=== PATIENT | female | born 1945 | race Caucasian/White ===

== ENCOUNTER 2017-09-11 04:34 | Inpatient (IN) | payer OTHER, MEDICARE ==
[2017-09-11] VITALS (7 sets, daily range): BP systolic 97–170; BP diastolic 50–68; PULSE 61–101; RESP 16–18; TEMP 95.6–103.1; O2SAT 92–96
[~2017-09-11] VITALS: Ht 160 cm; Wt 82.2 kg
[2017-09-11] MEDS ORDERED: LISI2.5T3 PO (04:42)
[2017-09-11] MEDS ORDERED: PIPERACIL-TAZO 4.5 GM PREMIX 100 ML IV ONE (04:45)
[2017-09-11] MEDS ORDERED: SODIUM CHLOR 0.9% 1000 ML INJ 1,000 ML IV ONE (04:45)
[2017-09-11] MEDS ORDERED: ACETAMINOPHEN 325 MG TAB PO ONE (04:45)
[2017-09-11] MEDS ORDERED: ONDANSETRON HCL 4 MG/2 ML VIAL IV PUSH ONE (04:45)
--- NOTE | 2017-09-11 04:50 | PD ---
HPI Chief Complaint: Cold / Flu Symptoms Time Seen by Provider: 04:40 Travel History International Travel<30 days: No Contact w/Intl Traveler<30days: No Traveled to known affect area: No History of Present Illness HPI 72-year-old female presents to the emergency room from home by EMS transport for evaluation of generalized weakness and chills. Patient had subjective fever. Patient has not felt well for the past few days but specifically since 11 PM has had acute worsening of her illness. Patient's had phlegm production of white sputum times one episode of coughing does not report any sinus pressure drainage sore throat earache neck pain chest pain or worsening shortness of breath or wheezing. Patient has had nausea without vomiting. No report of abdominal pain or flank pain. Patient is noted decreased urine output and urinary urgency. Patient denies diarrhea or change in bowel habits. Patient states has been has not felt well as well. Patient is visiting from [place] for the past month through November. Patient has history of hypertension borderline diabetes and prior myocardial infarction. Patient states she takes no blood thinning agents. Patient also reports she did not have the flu vaccine for this season. Per EMS temperature was elevated at 100.2. Vital signs were otherwise reportedly found in normal range with a normal range glucose. Patient was able to ambulate to the EMS stretcher from her local resident. [facility] Past Medical History Narrative Medical CAD borderline diabetes hypertension IN no tobacco use nursing notes reviewed Hypertension: Yes Tubal Ligation: Yes Past Surgical History Abdominal Surgery: Yes Appendectomy: Yes Social History Alcohol Use: Yes Tobacco Use: No Substance Use: No Allergies-Medications (Allergen,Severity, Reaction): Coded Allergies: No Known Allergies (Unverified , 09/11/17) Reported Meds & Prescriptions Reported Meds & Active Scripts Active Reported Lisinopril Unknown Strength Tab Unknown Dose PO BID Review of Systems Except as stated in HPI: all other systems reviewed are Neg General / Constitutional: Positive: Fever (subjective), Chills HENT: Positive: Congestion, No: Sore Throat Cardiovascular: No: Chest Pain or Discomfort Respiratory: Positive: Cough, No: Wheezing Gastrointestinal: Positive: Nausea, No: Vomiting, Diarrhea, Abdominal Pain Genitourinary: Positive: Frequency, Decreased Urinary Output, No: Dysuria Musculoskeletal: Positive: Myalgias, Arthralgias Skin: No Rash Neurologic: Positive: Weakness Psychiatric: No: Anxiety Hematologic/Lymphatic: No: Easy Bruising Physical Exam Narrative GENERAL: Well-developed well-nourished obese elderly female in no acute distress no respiratory distress SKIN: Warm and dry. HEAD: Normocephalic. EYES: No scleral icterus. No injection or drainage. NECK: Supple, trachea midline. No JVD or lymphadenopathy. CARDIOVASCULAR: Regular rate and rhythm without murmurs, gallops, or rubs. RESPIRATORY: Breath sounds equal bilaterally. No accessory muscle use. GASTROINTESTINAL: Abdomen soft, non-tender, nondistended. MUSCULOSKELETAL: No cyanosis, or edema. BACK: Nontender without obvious deformity. No CVA tenderness. Data Data Last Documented VS Vital Signs Date Time Temp Pulse Resp B/P (MAP) Pulse Ox O2 Delivery O2 Flow Rate FiO2 09/11/17 05:21 99.5 86 18 149/67 (94) 96 Nasal Cannula 2.00 Orders Orders Sepsis Workup Initiated (09/11/17 ) Electrocardiogram (09/11/17 04:40) Complete Blood Count With Diff (09/11/17 04:40) Comprehensive Metabolic Panel (09/11/17 04:40) Prothrombin Time / Inr (Pt) (09/11/17 04:40) Act Partial Throm Time (Ptt) (09/11/17 04:40) Lactic Acid Sepsis Protocol (09/11/17 04:40) Magnesium (Mg) (09/11/17 04:40) Lipase (09/11/17 04:40) Troponin I (09/11/17 04:40) Urinalysis - C+S If Indicated (09/11/17 04:40) Influenzae A/B Antigen (09/11/17 04:40) Blood Culture (09/11/17 04:40) Chest, Single Ap (09/11/17 04:40) Blood Glucose (09/11/17 04:40) Ecg Monitoring (09/11/17 04:40) Iv Access Insert/Monitor (09/11/17 04:40) Oximetry (09/11/17 04:40) Oxygen Administration (09/11/17 04:40) Sodium Chlor 0.9% 1000 Ml Inj (Ns 1000 M (09/11/17 04:45) Ondansetron Inj (Zofran Inj) (09/11/17 04:45) Acetaminophen (Tylenol) (09/11/17 04:45) Piperacil-Tazo 4.5 Gm Premix (Zosyn 4.5 (09/11/17 04:45) Vancomycin Inj (Vancomycin Inj) (09/11/17 05:30) Urine Culture (09/11/17 05:40) Labs Laboratory Tests Test 09/11/17 04:50 09/11/17 05:40 White Blood Count 18.7 TH/MM3 Red Blood Count 5.10 MIL/MM3 Hemoglobin 14.3 GM/DL Hematocrit 41.9 % Mean Corpuscular Volume 82.2 FL Mean Corpuscular Hemoglobin 28.0 PG Mean Corpuscular Hemoglobin Concent 34.1 % Red Cell Distribution Width 12.7 % Platelet Count 273 TH/MM3 Mean Platelet Volume 7.8 FL Neutrophils (%) (Auto) 90.4 % Lymphocytes (%) (Auto) 5.8 % Monocytes (%) (Auto) 3.4 % Eosinophils (%) (Auto) 0.2 % Basophils (%) (Auto) 0.2 % Neutrophils # (Auto) 16.9 TH/MM3 Lymphocytes # (Auto) 1.1 TH/MM3 Monocytes # (Auto) 0.6 TH/MM3 Eosinophils # (Auto) 0.0 TH/MM3 Basophils # (Auto) 0.0 TH/MM3 CBC Comment DIFF FINAL Differential Comment Prothrombin Time 10.7 SEC Prothromb Time International Ratio 1.1 RATIO Activated Partial Thromboplast Time 25.4 SEC Blood Urea Nitrogen 15 MG/DL Creatinine 0.92 MG/DL Random Glucose 177 MG/DL Total Protein 7.1 GM/DL Albumin 3.7 GM/DL Calcium Level 9.3 MG/DL Magnesium Level 1.4 MG/DL Alkaline Phosphatase 91 U/L Aspartate Amino Transf (AST/SGOT) 18 U/L Alanine Aminotransferase (ALT/SGPT) 29 U/L Total Bilirubin 0.9 MG/DL Sodium Level 136 MEQ/L Potassium Level 4.0 MEQ/L Chloride Level 100 MEQ/L Carbon Dioxide Level 24.9 MEQ/L Anion Gap 11 MEQ/L Estimat Glomerular Filtration Rate 60 ML/MIN Lactic Acid Level 2.5 mmol/L Troponin I LESS THAN 0.02 NG/ML Lipase 85 U/L Urine Color YELLOW Urine Turbidity HAZY Urine pH 6.5 Urine Specific [place] 1.025 Urine Protein 30 mg/dL Urine Glucose (UA) NEG mg/dL Urine Ketones NEG mg/dL Urine Occult Blood SMALL Urine Nitrite NEG Urine Bilirubin NEG Urine Urobilinogen LESS THAN 2.0 MG/DL Urine Leukocyte Esterase LARGE Urine RBC 7 /hpf Urine WBC /hpf Urine Squamous Epithelial Cells 11 /hpf Urine Transitional Epithelial Cells 1 /hpf Urine Bacteria OCC /hpf Urine Mucus FEW /lpf Microscopic Urinalysis Comment CULTURE INDICATED MDM Medical Decision Making Medical Screen Exam Complete: Yes Emergency Medical Condition: Yes Medical Record Reviewed: Yes Interpretation(s) EKG normal sinus rhythm rate 61 left bundle branch block no acute ST elevation injury pattern noted QS septally age-indeterminate CXR: FINDINGS: A single view of the chest demonstrates the lungs to be symmetrically aerated without evidence of mass, infiltrate or effusion. The cardiomediastinal contours are unremarkable. Osseous structures are intact. CONCLUSION: 1. No acute cardiopulmonary disease. oJhnnie Brizuela MD on September 11, 2017 at 5:08 Board Certified Radiologist. This report was verified electronically. Last Impressions Chest X-Ray 09/11/17 0440 Signed Impressions: Service Date/Time: September 04:55 - CONCLUSION: 1. No acute cardiopulmonary disease. Johnnie Brizuela MD CBC & BMP Diagram 09/11/17 04:50 Total Protein 7.1, Albumin 3.7, Calcium Level 9.3, Magnesium Level 1.4 L, Alkaline Phosphatase 91, Aspartate Amino Transf (AST/SGOT) 18, Alanine Aminotransferase (ALT/SGPT) 29, Total Bilirubin 0.9 Vital Signs Date Time Temp Pulse Resp B/P (MAP) Pulse Ox O2 Delivery O2 Flow Rate FiO2 09/11/17 05:21 99.5 86 18 149/67 (94) 96 Nasal Cannula 2.00 09/11/17 04:44 93 Room Air 09/11/17 04:44 93 Room Air 09/11/17 04:37 103.1 61 18 170/68 (102) 92 UA: innumerable wbc's cx indicated lactic acid: 2.5 influenza: negative Differential Diagnosis Generalized weakness, influenza, sepsis, pneumonia, UTI, viral syndrome, ACS Narrative Course Patient was placed on cardiac rn IV access obtained continuous pulse oximetry vital signs performed and patient found to be febrile administered acetaminophen IV fluids presumptive IV antibiotic coverage and specimens collected for influenza as well as urinalysis EKG ordered in view of history of hypertension diabetes and previous IN with complaint of nausea; patient administered acetaminophen for fever Sepsis Criteria SIRS Criteria (2 or more): Temp > 100.9 or < 96.8, WBC > 57647, < 4000 or > 10 % bands Sepsis Criteria (SIRS+source): Infect source susp/known (urine/pyuria) Severe Sepsis (+one): Lactate >2 Physician Communication Physician Communication discussed with Dr Bryant Diagnosis Primary Impression: Sepsis Qualified Codes: A41.9 - Sepsis, unspecified organism Additional Impression: UTI (urinary tract infection) Qualified Codes: N39.0 - Urinary tract infection, site not specified Admitting Information Admitting Physician Requests: Roma Butler MD Sep 11, 2017 04:50
[2017-09-11 05:01] LABS: AUTOMATED NEUTROPHIL # 16.9 TH/MM3 (1.8-7.7); BASOPHIL % 0.2 % (0.0-2.0); EOSINOPHIL % 0.2 % (0.0-4.0); HEMATOCRIT 41.9 % (35.0-46.0); HEMOGLOBIN 14.3 GM/DL (11.6-15.3); LYMPH % 5.8 % (9.0-44.0); LYMPHOCYTE # 1.1 TH/MM3 (1.0-4.8); MEAN CELL VOLUME 82.2 FL (80.0-100.0); MEAN CORPUSCULAR HGB CONC 34.1 % (32.0-36.0); MEAN PLATELET VOLUME 7.8 FL (7.0-11.0); MONO % 3.4 % (0.0-8.0); MONOCYTE # 0.6 TH/MM3 (0-0.9); NEUT % 90.4 % (16.0-70.0); PLATELET COUNT 273 TH/MM3 (150-450); RED CELL DISTRIBUTION WIDTH 12.7 % (11.6-17.2); WHITE BLOOD COUNT 18.7 TH/MM3 (4.0-11.0)
--- NOTE | 2017-09-11 05:09 | RADRPT ---
EXAM DATE/TIME: 09/11/2017 04:55 [facility] COMPARISON: No previous studies available for comparison. INDICATIONS : Short of breath and fever. MEDICAL HISTORY : None. SURGICAL HISTORY : None. ENCOUNTER: Initial ACUITY: 1 day PAIN SCORE: 0/10 LOCATION: Bilateral chest FINDINGS: A single view of the chest demonstrates the lungs to be symmetrically aerated without evidence of mas s, infiltrate or effusion. The cardiomediastinal contours are unremarkable. Osseous structures are intact. CONCLUSION: 1. No acute cardiopulmonary disease. Johnnie Brizuela MD on September 11, 2017 at 5:08 Board Certified Radiologist. This report was verified electronically.
[2017-09-11 05:17] LABS: INTERNATIONAL NORMALIZED RATIO 1.1 RATIO; PROTHROMBIN TIME - PATIENT 10.7 SEC (9.8-11.6)
[2017-09-11 05:20] LABS: LACTIC ACID SEPSIS PROTOCOL 2.5 mmol/L (0.4-2.0)
[2017-09-11 05:28] LABS: ALT (GPT) 29 U/L (10-53)
[2017-09-11 05:30] LABS: ALBUMIN 3.7 GM/DL (3.4-5.0); AST (GOT) 18 U/L (15-37); BICARBONATE 24.9 MEQ/L (21.0-32.0); BLOOD UREA NITROGEN 15 MG/DL (7-18); CALCIUM 9.3 MG/DL (8.5-10.1); CHLORIDE 100 MEQ/L (98-107); CREATININE 0.92 MG/DL (0.50-1.00); GLOMERULAR FILTRATION RATE 60 ML/MIN (>89); GLUCOSE,RANDOM 177 MG/DL (74-106); MAGNESIUM 1.4 MG/DL (1.5-2.5); SODIUM (NA) 136 MEQ/L (136-145)
[2017-09-11] MEDS ORDERED: VANCOMYCIN INJ 1,000 MG in SODIUM CHLOR 0.9% 250 ML INJ 250 ML IV ONE (05:30)
[2017-09-11 05:33] LABS: ALKALINE PHOSPHATASE 91 U/L (45-117); TOTAL BILIRUBIN ADULT 0.9 MG/DL (0.2-1.0); TOTAL PROTEIN 7.1 GM/DL (6.4-8.2); TROPONIN I LESS THAN 0.02 NG/ML (0.02-0.05)
[2017-09-11 06:01] LABS: BACTERIA, URINE OCC /hpf; BILIRUBIN, URINE NEG (NEG); BLOOD, URINE SMALL (NEG); GLUCOSE,URINE NEG (NEG); KETONE, URINE NEG (NEG); MUCUS URINE FEW /lpf (OCC); NITRITE,URINE NEG (NEG); PH, URINE 6.5 (5.0-8.5); SQUAMOUS EPITHELIAL CELL URINE 11 /hpf (0-5); TRANSITIONAL EPI CELLS, URINE 1 /hpf; URINE COLOR YELLOW (YELLW/STRAW); URINE LEUKOCYTE ESTERASE LARGE (NEG)
[2017-09-11] MEDS ORDERED: SODIUM CHLOR 0.45% 1000 ML INJ 1,000 ML IV SCH (06:41)
[2017-09-11] MEDS ORDERED: BISACODYL 10 MG SUPP RECTAL PRN (06:45)
[2017-09-11] MEDS ORDERED: NALOXONE HCL 0.4 MG/ML AMP IV PUSH PRN (06:45)
[2017-09-11] MEDS ORDERED: LACTULOSE SYRUP 20 GM/30 ML CUP PO PRN (06:45)
[2017-09-11] MEDS ORDERED: ONDANSETRON HCL 4 MG/2 ML VIAL IVP PRN (06:45)
[2017-09-11] MEDS ORDERED: MAGNESIUM HYDROXIDE SUSP 30 ML CUP PO PRN (06:45)
[2017-09-11] MEDS ORDERED: SENNOSIDES 8.6 MG TAB PO PRN (06:45)
[2017-09-11] MEDS ORDERED: SODIUM CHLORIDE 0.9% FLUSH 10 ML FLUSH IV FLUSH PRN (06:45)
[2017-09-11] MEDS ORDERED: TEMAZEPAM 15 MG CAP PO PRN (06:45)
--- NOTE | 2017-09-11 06:57 | HHI.HP ---
[facility] Primary Care Physician Unknown Admission Diagnosis sepsis; uti/pyuria Diagnoses: Chief Complaint: Fever and chills, not feeling well Travel History International Travel<30 Days: No Contact w/Intl Traveler <30 Da: No Traveled to Known Affected Are: No Sepsis Criteria SIRS Criteria (2 or more): Temp > 100.9 or < 96.8, WBC > 54232, < 4000 or > 10 % bands Sepsis Criteria (SIRS+source): Infect source susp/known Severe Sepsis (+one): Lactate >2 History of Present Illness 72-year-old female with a medical history significant for hypertension, borderline diabetes brought from home by EMS for evaluation of fever, chills, generalized weakness. Patient reports her symptoms has been ongoing for the past couple of days and has been worsening which prompted her to call EMS. She reports urinary urgency and has not been urinating as much. Her appetite has decreased for the past couple of days. She has not been drinking as much fluid. No diarrhea or vomiting. She denies any previous history of UTI. Patient meet severe sepsis criteria secondary to UTI per workup in the emergency room. She will be admitted for further treatment. Review of Systems Constitutional: COMPLAINS OF: Fatigue, Fever, Chills Genitourinary: COMPLAINS OF: Urgency Except as stated in HPI: all other systems reviewed are Neg Past Family Social History Past Medical History Hypertension Borderline diabetes per patient, last PCP visit her blood work were good. Past Surgical History Tubal ligation Appendectomy Hernia repair Reported Medications Reported Meds & Active Scripts Active Reported Lisinopril Unknown Strength Tab Unknown Dose PO BID Allergies: Coded Allergies: No Known Allergies (Unverified , 09/11/17) Family History Reviewed and is noncontributory. Social History Quit smoking over 14 years ago. Social alcohol. [place], [place]. Physical Exam Vital Signs Vital Signs Date Time Temp Pulse Resp B/P (MAP) Pulse Ox O2 Delivery O2 Flow Rate FiO2 09/11/17 05:21 99.5 86 18 149/67 (94) 96 Nasal Cannula 2.00 09/11/17 04:44 93 Room Air 09/11/17 04:44 93 Room Air 09/11/17 04:37 103.1 61 18 170/68 (102 92 Physical Exam GENERAL: This is a well-nourished, well-developed patient, in no apparent distress. SKIN: No rashes, ecchymoses or lesions. Cool and dry. HEAD: Atraumatic. Normocephalic. No temporal or scalp tenderness. EYES: Pupils equal round and reactive. Extraocular motions intact. No scleral icterus. No injection or drainage. ENT: Nose without bleeding, purulent drainage or septal hematoma. Throat without erythema, tonsillar hypertrophy or exudate. Uvula midline. Airway patent. NECK: Trachea midline. No JVD or lymphadenopathy. Supple, nontender, no meningeal signs. CARDIOVASCULAR: Regular rate and rhythm without murmurs, gallops, or rubs. RESPIRATORY: Clear to auscultation. Breath sounds equal bilaterally. No wheezes , rales, or rhonchi. GASTROINTESTINAL: Abdomen soft, non-tender, nondistended. No hepato-splenomegaly , or palpable masses. No guarding. MUSCULOSKELETAL: Extremities without clubbing, cyanosis, or edema. No joint tenderness, effusion, or edema noted. No calf tenderness. Negative Homans sign bilaterally. NEUROLOGICAL: Awake and alert. Cranial nerves II through XII intact. Motor and sensory grossly within normal limits. Five out of 5 muscle strength in all muscle groups. Normal speech. Laboratory Laboratory Tests Test 09/11/17 04:50 09/11/17 05:40 White Blood Count 18.7 Red Blood Count 5.10 Hemoglobin 14.3 Hematocrit 41.9 Mean Corpuscular Volume 82.2 Mean Corpuscular Hemoglobin 28.0 Mean Corpuscular Hemoglobin Concent 34.1 Red Cell Distribution Width 12.7 Platelet Count 273 Mean Platelet Volume 7.8 Neutrophils (%) (Auto) 90.4 Lymphocytes (%) (Auto) 5.8 Monocytes (%) (Auto) 3.4 Eosinophils (%) (Auto) 0.2 Basophils (%) (Auto) 0.2 Neutrophils # (Auto) 16.9 Lymphocytes # (Auto) 1.1 Monocytes # (Auto) 0.6 Eosinophils # (Auto) 0.0 Basophils # (Auto) 0.0 CBC Comment DIFF FINAL Differential Comment Prothrombin Time 10.7 Prothromb Time International Ratio 1.1 Activated Partial Thromboplast Time 25.4 Blood Urea Nitrogen 15 Creatinine 0.92 Random Glucose 177 Total Protein 7.1 Albumin 3.7 Calcium Level 9.3 Magnesium Level 1.4 Alkaline Phosphatase 91 Aspartate Amino Transf (AST/SGOT) 18 Alanine Aminotransferase (ALT/SGPT) 29 Total Bilirubin 0.9 Sodium Level 136 Potassium Level 4.0 Chloride Level 100 Carbon Dioxide Level 24.9 Anion Gap 11 Estimat Glomerular Filtration Rate 60 Lactic Acid Level 2.5 Troponin I LESS THAN 0.02 Lipase 85 Urine Color YELLOW Urine Turbidity HAZY Urine pH 6.5 Urine Specific [place] 1.025 Urine Protein 30 Urine Glucose (UA) NEG Urine Ketones NEG Urine Occult Blood SMALL Urine Nitrite NEG Urine Bilirubin NEG Urine Urobilinogen LESS THAN 2.0 Urine Leukocyte Esterase LARGE Urine RBC 7 Urine WBC Urine Squamous Epithelial Cells 11 Urine Transitional Epithelial Cells 1 Urine Bacteria OCC Urine Mucus FEW Microscopic Urinalysis Comment CULTURE INDICATED Date/Time Source Procedure Growth Status 09/11/17 04:50 Blood Peripheral Aerobic Blood Culture Pending Received 09/11/17 04:50 Blood Peripheral Anaerobic Blood Culture Pending Received 09/11/17 04:50 Nasal Washing Influenza Types A,B Antigen ([facility]) - Final NEGATIVE FOR FLU A AND B ANTIGEN.... Complete 09/11/17 05:40 Urine Clean Catch Urine Culture Pending Received Result Diagram: 09/11/1744909/11/17 045 Imaging Last Impressions Chest X-Ray 09/11/17439 Signed Impressions: Service Date/Time: September 04:55 - CONCLUSION: 1. No acute cardiopulmonary disease. MD Viktor Hayward VTE Risk Assessment Caprini VTE Risk Assessment: Mod/High Risk (score >= 2) Caprini Risk Assessment Model Point Value = 1 Point Value = 2 Point Value = 3 Point Value = 5 Age 41-60 Minor surgery BMI > 25 kg/m2 Swollen legs Varicose veins or History of unexplained or recurrent spontaneous Oral contraceptives or hormone replacement Sepsis (< 1 month) Serious lung disease, including pneumonia (< 1 month) Abnormal pulmonary function Acute myocardial infarction Congestive heart failure (< 1 month) History of inflammatory bowel disease Medical patient at bed rest Age 61-74 Arthroscopic surgery Major open surgery (> 45 min) Laparoscopic surgery (> 45 min) Malignancy Confined to bed (> 72 hours) Immobilizing plaster cast Central venous access Age >= 75 History of VTE Family history of VTE Factor V Leiden Prothrombin [id number] Lupus anticoagulant Anticardiolipin antibodies Elevated serum homocysteine Heparin-induced thrombocytopenia Other congenital or acquired thrombophilia Stroke (< 1 month) Elective arthroplasty Hip, pelvis, or leg fracture Acute spinal cord injury (< 1 month) Prophylaxis Regimen Total Risk Factor Score Risk Level Prophylaxis Regimen 0-1 Low Early ambulation 2 Moderate Order ONE of the following: *Sequential Compression Device (SCD) *Heparin 5000 units SQ BID 3-4 Higher Order ONE of the following medications: *Heparin 5000 units SQ TID *Enoxaparin/Lovenox 40 mg SQ daily (WT < 150 kg, CrCl > 30 mL/min) *Enoxaparin/Lovenox 30 mg SQ daily (WT < 150 kg, CrCl > 10-29 mL/min) *Enoxaparin/Lovenox 30 mg SQ BID (WT < 150 kg, CrCl > 30 mL/min) AND/OR *Sequential Compression Device (SCD) 5 or more Highest Order ONE of the following medications: *Heparin 5000 units SQ TID (Preferred with Epidurals) *Enoxaparin/Lovenox 40 mg SQ daily (WT < 150 kg, CrCl > 30 mL/min) *Enoxaparin/Lovenox 30 mg SQ daily (WT < 150 kg, CrCl > 10-29 mL/min) *Enoxaparin/Lovenox 30 mg SQ BID (WT < 150 kg, CrCl > 30 mL/min) AND *Sequential Compression Device (SCD) Assessment and Plan Problem List: (1) Severe sepsis ICD Code: A41.9 - Sepsis, unspecified organism; R65.20 - Severe sepsis without septic shock Status: Acute Plan: Secondary to UTI. Continue IV fluid resuscitation. Trend lactic acid. Patient was given vancomycin and Zosyn in the ED. Continue Zosyn Follow urine and blood cultures (2) Hypertension ICD Code: I10 - Essential (primary) hypertension Plan: Patient normally takes lisinopril. Unsure of the dose. Start lisinopril 10 mg twice a day. Follow BP and adjust antihypertensives as needed. (3) Hypomagnesemia ICD Code: E83.42 - Hypomagnesemia Plan: Mild. Replace Code Status Full Discussed Condition With Dr. Floyd. Physician Certification 2 Midnight Certification Type: Admission for Inpatient Services Order for Inpatient Services The services are ordered in accordance with Medicare regulations or non- Medicare payer requirements, as applicable. In the case of services not specified as inpatient-only, they are appropriately provided as inpatient services in accordance with the 2-midnight benchmark. Estimated LOS (days): 3 days is the estimated time the patient will need to remain in the hospital, assuming treatment plan goals are met and no additional complications. Post-Hospital Plan: Home Reina Samson MD Sep 11, 2017 06:57
[2017-09-11] MEDS ORDERED: MAGNESIUM SULFATE 1 GM PREMIX 100 ML IV ONE (07:00)
[2017-09-11] MEDS: ENOXAPARIN SODIUM 40 MG/0.4 ML SYRINGE SQ SCH (09:08)
[2017-09-11] MEDS: LISINOPRIL 10 MG TAB PO SCH ×2 (09:08→21:00)
[2017-09-11] MEDS: SODIUM CHLORIDE 0.9% FLUSH 10 ML FLUSH IV FLUSH SCH ×2 (09:12→21:00)
--- NOTE | 2017-09-11 10:52 | EKG ---
Date Performed: 09/11/2017 Time Performed: 04:48:23 PTAGE: 72 years EKG: Sinus rhythm WITH 2ND DEGREE AV BLOCK, MOBITZ TYPE II LEFT BUNDLE BRANCH BLOCK ABNORMAL ECG NO PREVIOUS TRACING DOCTOR: Candido Jaime Interpretating Date/Time 09/11/2017 10:50:31
[2017-09-11] MEDS: PIPERACIL-TAZO 4.5 GM PREMIX 100 ML IV SCH ×3 (12:32→23:57)
[2017-09-11] MEDS: ACETAMINOPHEN 325 MG TAB PO PRN ×2 (15:35→23:56)
[2017-09-11] MEDS ORDERED: LOSA100T3 PO (15:37)
[2017-09-12] VITALS (9 sets, daily range): BP systolic 98–149; BP diastolic 50–67; PULSE 66–96; RESP 17–18; TEMP 97.9–102.3; O2SAT 92–98
[2017-09-12 05:04] LABS: AUTOMATED NEUTROPHIL # 15.6 TH/MM3 (1.8-7.7); BASOPHIL % 0.3 % (0.0-2.0); EOSINOPHIL # 0.1 TH/MM3 (0-0.4); EOSINOPHIL % 0.6 % (0.0-4.0); HEMATOCRIT 34.9 % (35.0-46.0); HEMOGLOBIN 11.6 GM/DL (11.6-15.3); LYMPH % 6.7 % (9.0-44.0); LYMPHOCYTE # 1.3 TH/MM3 (1.0-4.8); MEAN CELL VOLUME 83.6 FL (80.0-100.0); MEAN CORPUSCULAR HEMOGLOBIN 27.9 PG (27.0-34.0); MEAN CORPUSCULAR HGB CONC 33.3 % (32.0-36.0); MONO % 9.2 % (0.0-8.0); MONOCYTE # 1.7 TH/MM3 (0-0.9); NEUT % 83.2 % (16.0-70.0); PLATELET COUNT 216 TH/MM3 (150-450); RED BLOOD COUNT 4.17 MIL/MM3 (4.00-5.30); RED CELL DISTRIBUTION WIDTH 12.8 % (11.6-17.2); WHITE BLOOD COUNT 18.8 TH/MM3 (4.0-11.0)
[2017-09-12] MEDS: PIPERACIL-TAZO 4.5 GM PREMIX 100 ML IV SCH ×3 (05:04→15:16)
[2017-09-12 05:19] LABS: BICARBONATE 27.3 MEQ/L (21.0-32.0); CALCIUM 7.9 MG/DL (8.5-10.1); CREATININE 0.99 MG/DL (0.50-1.00)
[2017-09-12] MEDS: ACETAMINOPHEN 325 MG TAB PO PRN ×2 (08:11→15:16)
[2017-09-12] MEDS: LISINOPRIL 10 MG TAB PO SCH ×2 (08:11→21:00)
--- NOTE | 2017-09-12 14:39 | HHI.PR ---
Subjective Remarks The patient states that she feels better compared to previous day. Patient still having fevers with a T-max of 101.7 yesterday afternoon. Patient denies chest pain or shortness of breath. Objective Vitals Vital Signs Date Time Temp Pulse Resp B/P (MAP) Pulse Ox O2 Delivery O2 Flow Rate FiO2 09/12/17 12:00 99.8 75 18 112/60 (77) 94 09/12/17 08:00 96 09/12/17 08:00 100.9 79 18 114/54 (74) 98 09/12/17 04:51 97.9 70 18 98/52 (67) 94 09/12/17 00:13 76 09/12/17 00:00 100.7 79 18 110/50 (70) 92 09/11/17 20:00 99.0 72 18 97/50 (66) 94 09/11/17 16:00 101.7 87 16 131/65 (87) 95 I/O 09/11/17 09/11/17 09/11/17 09/12/17 09/12/17 09/12/17 07:00 15:00 23:00 07:00 15:00 23:00 Intake Total 1350 ml 200 ml 1500 ml 200 ml Balance 1350 ml 200 ml 1500 ml 200 ml Intake Oral 500 ml IV Total 1350 ml 200 ml 1000 ml 200 ml # Voids 3 1 # Bowel Movements 0 Result Diagram: 09/12/17 0300 09/12/17 0300 Imaging Last Impressions Chest X-Ray 09/11/17 0440 Signed Impressions: Service Date/Time: September 04:55 - CONCLUSION: 1. No acute cardiopulmonary disease. Johnnie Brizuela MD Objective Remarks GENERAL: This is a well-nourished, well-developed patient, in no apparent distress. SKIN: No rashes, ecchymoses or lesions. Cool and dry. HEAD: Atraumatic. Normocephalic. No temporal or scalp tenderness. EYES: Pupils equal round and reactive. Extraocular motions intact. No scleral icterus. No injection or drainage. ENT: Nose without bleeding, purulent drainage or septal hematoma. Throat without erythema, tonsillar hypertrophy or exudate. Uvula midline. Airway patent. NECK: Trachea midline. No JVD or lymphadenopathy. Supple, nontender, no meningeal signs. CARDIOVASCULAR: Regular rate and rhythm without murmurs, gallops, or rubs. RESPIRATORY: Clear to auscultation. Breath sounds equal bilaterally. No wheezes , rales, or rhonchi. GASTROINTESTINAL: Abdomen soft, non-tender, nondistended. No hepato-splenomegaly , or palpable masses. No guarding. MUSCULOSKELETAL: Extremities without clubbing, cyanosis, or edema. No joint tenderness, effusion, or edema noted. No calf tenderness. Negative Homans sign bilaterally. NEUROLOGICAL: Awake and alert. Cranial nerves II through XII intact. Motor and sensory grossly within normal limits. Five out of 5 muscle strength in all muscle groups. Normal speech. Procedures None Medications and IVs Current Medications Medications (Trade) Dose Ordered Sig/Radha Route Start Time Stop Time Status Last Admin Piperacillin Sod/ Tazobactam Sod 100 ml @ 200 mls/hr Q6H IV 09/11/17 11:00 09/12/17 12:31 (NS Flush) 2 ml UNSCH PRN IV FLUSH 09/11/17 06:45 (NS Flush) 2 ml BID IV FLUSH 09/11/17 09:00 09/11/17 09:12 (Tylenol) 650 mg Q4H PRN PO 09/11/17 06:45 09/12/17 08:11 (Zofran Inj) 4 mg Q6H PRN IVP 09/11/17 06:45 (Restoril) 15 mg HS PRN PO 09/11/17 06:45 (Lovenox Inj) 40 mg Q24H SQ 09/11/17 08:00 09/11/17 09:08 (Narcan Inj) 0.4 mg UNSCH PRN IV PUSH 09/11/17 06:45 (Milk Of Magnesia Liq) 30 ml Q12H PRN PO 09/11/17 06:45 09/12/17 08:19 (Senokot) 17.2 mg Q12H PRN PO 09/11/17 06:45 (Dulcolax Supp) 10 mg DAILY PRN RECTAL 09/11/17 06:45 (Lactulose Liq) 30 ml DAILY PRN PO 09/11/17 06:45 (Prinivil) 10 mg Q12HR PO 09/11/17 09:00 09/12/17 08:11 Urinary Catheter: No Vascular Central Line Catheter: No A/P Problem List: (1) Sepsis secondary to UTI ICD Code: A41.9 - Sepsis, unspecified organism; N39.0 - Urinary tract infection , site not specified Plan: Continue IV fluid resuscitation. Trend lactic acid. Patient was given vancomycin and Zosyn in the ED. Continue Zosyn Follow urine and blood cultures 3/ urine cultures are growing gram-negative rods. Follow-up ID and sensitivities. (2) Hypertension ICD Code: I10 - Essential (primary) hypertension Plan: Patient normally takes lisinopril. Unsure of the dose. Patient started on lisinopril. 09/12 due to patient's episodic hypotension I will hold antihypertensive medications for now. (3) Hypomagnesemia ICD Code: E83.42 - Hypomagnesemia Plan: Mild. Replace Monitor magnesium. (4) Hypokalemia ICD Code: E87.6 - Hypokalemia Plan: Replace orally and continue to monitor BMP. (5) Elevated lactic acid level ICD Code: R79.89 - Other specified abnormal findings of blood chemistry Plan: Reticulocyte acid levels trending down from 2.5-2.1. Continue IV fluids. Check lactic acid. Assessment and Plan GI prophylaxis:Add PPI. DVT reflexes: SCDs, Lovenox subcutaneously. Discharge Planning Continue to monitor on the medical floor. Discharge pending clinical improvement. Possible discharge in a.m. if patient afebrile 24 hours. Maury Pack MD Sep 12, 2017 14:39
[2017-09-12] MEDS: ENOXAPARIN SODIUM 40 MG/0.4 ML SYRINGE SQ SCH (15:15)
[2017-09-12] MEDS: SODIUM CHLORIDE 0.9% FLUSH 10 ML FLUSH IV FLUSH SCH ×2 (15:16→21:38)
[2017-09-13] VITALS (7 sets, daily range): BP systolic 125–142; BP diastolic 57–76; PULSE 70–85; RESP 17–20; TEMP 98.7–100.4; O2SAT 90–96
[2017-09-13] MEDS: PIPERACIL-TAZO 4.5 GM PREMIX 100 ML IV SCH ×2 (00:16→05:44)
[2017-09-13] MEDS: ACETAMINOPHEN 325 MG TAB PO PRN ×2 (00:19→13:43)
[2017-09-13] MEDS: ENOXAPARIN SODIUM 40 MG/0.4 ML SYRINGE SQ SCH (07:54)
[2017-09-13] MEDS: LISINOPRIL 10 MG TAB PO SCH ×2 (07:54→19:43)
[2017-09-13] MEDS: SODIUM CHLORIDE 0.9% FLUSH 10 ML FLUSH IV FLUSH SCH ×2 (07:54→19:43)
[2017-09-13 09:36] LABS: AUTOMATED NEUTROPHIL # 10.6 TH/MM3 (1.8-7.7); BASOPHIL % 0.3 % (0.0-2.0); EOSINOPHIL # 0.2 TH/MM3 (0-0.4); EOSINOPHIL % 1.4 % (0.0-4.0); HEMATOCRIT 35.7 % (35.0-46.0); HEMOGLOBIN 11.9 GM/DL (11.6-15.3); LYMPH % 9.3 % (9.0-44.0); LYMPHOCYTE # 1.2 TH/MM3 (1.0-4.8); MEAN CELL VOLUME 83.6 FL (80.0-100.0); MEAN CORPUSCULAR HEMOGLOBIN 27.8 PG (27.0-34.0); MEAN CORPUSCULAR HGB CONC 33.2 % (32.0-36.0); MEAN PLATELET VOLUME 7.6 FL (7.0-11.0); MONO % 7.3 % (0.0-8.0); MONOCYTE # 0.9 TH/MM3 (0-0.9); NEUT % 81.7 % (16.0-70.0); PLATELET COUNT 215 TH/MM3 (150-450); RED BLOOD COUNT 4.27 MIL/MM3 (4.00-5.30); RED CELL DISTRIBUTION WIDTH 12.8 % (11.6-17.2)
[2017-09-13] MEDS: cefTRIAXone INJ 2,000 MG in SODIUM CHLORIDE 0.9% INJ 100 ML IV SCH (10:00)
[2017-09-13 10:05] LABS: ALBUMIN 2.8 GM/DL (3.4-5.0); ALKALINE PHOSPHATASE 70 U/L (45-117); ALT (GPT) 31 U/L (10-53); AST (GOT) 20 U/L (15-37); BICARBONATE 28.7 MEQ/L (21.0-32.0); BLOOD UREA NITROGEN 10 MG/DL (7-18); CALCIUM 8.5 MG/DL (8.5-10.1); CHLORIDE 104 MEQ/L (98-107); CREATININE 0.86 MG/DL (0.50-1.00); GLOMERULAR FILTRATION RATE 65 ML/MIN (>89); GLUCOSE,RANDOM 188 MG/DL (74-106); MAGNESIUM 1.9 MG/DL (1.5-2.5); PHOSPHORUS 1.9 MG/DL (2.5-4.9); SODIUM (NA) 139 MEQ/L (136-145); TOTAL BILIRUBIN ADULT 0.5 MG/DL (0.2-1.0); TOTAL PROTEIN 6.3 GM/DL (6.4-8.2)
--- NOTE | 2017-09-13 11:20 | HHI.PR ---
Subjective Remarks The patient still having fevers with a T-max of 102.3 yesterday afternoon and 100.1 midnight. The patient states she feels much better, denies chest pain, shortness of breath. States she felt a little chest congestion and wheezing earlier but that has resolved. Patient denies chills. BP stable. Objective Vitals Vital Signs Date Time Temp Pulse Resp B/P (MAP) Pulse Ox O2 Delivery O2 Flow Rate FiO2 09/13/17 08:00 99.2 85 17 126/60 (82) 90 09/13/17 04:00 98.7 70 17 131/57 (81) 96 09/13/17 03:44 75 09/13/17 00:02 100.1 77 18 130/62 (84) 95 09/12/17 23:49 70 09/12/17 20:00 99.2 69 17 108/58 (75) 97 09/12/17 19:49 66 09/12/17 16:00 102.3 91 18 149/67 (94) 92 09/12/17 12:00 99.8 75 18 112/60 (77) 94 I/O 09/12/17 09/12/17 09/12/17 09/13/17 09/13/17 09/13/17 07:00 15:00 23:00 07:00 15:00 23:00 Intake Total 200 ml 100 ml 1060 ml 600 ml Balance 200 ml 100 ml 1060 ml 600 ml Intake Oral 960 ml 400 ml IV Total 200 ml 100 ml 100 ml 200 ml # Voids 1 4 2 # Bowel Movements 1 Result Diagram: 09/13/17 0921 09/13/17 0921 Imaging Last Impressions Chest X-Ray 09/11/17 0440 Signed Impressions: Service Date/Time: September 04:55 - CONCLUSION: 1. No acute cardiopulmonary disease. Johnnie Brizuela MD Objective Remarks GENERAL: This is a well-nourished, well-developed patient, in no apparent distress. SKIN: No rashes, ecchymoses or lesions. Cool and dry. HEAD: Atraumatic. Normocephalic. No temporal or scalp tenderness. EYES: Pupils equal round and reactive. Extraocular motions intact. No scleral icterus. No injection or drainage. ENT: Nose without bleeding, purulent drainage or septal hematoma. Throat without erythema, tonsillar hypertrophy or exudate. Uvula midline. Airway patent. NECK: Trachea midline. No JVD or lymphadenopathy. Supple, nontender, no meningeal signs. CARDIOVASCULAR: Regular rate and rhythm without murmurs, gallops, or rubs. RESPIRATORY: Clear to auscultation. Breath sounds equal bilaterally. No wheezes , rales, or rhonchi. GASTROINTESTINAL: Abdomen soft, non-tender, nondistended. No hepato-splenomegaly , or palpable masses. No guarding. MUSCULOSKELETAL: Extremities without clubbing, cyanosis, or edema. No joint tenderness, effusion, or edema noted. No calf tenderness. Negative Homans sign bilaterally. NEUROLOGICAL: Awake and alert. Cranial nerves II through XII intact. Motor and sensory grossly within normal limits. Five out of 5 muscle strength in all muscle groups. Normal speech. Procedures None Medications and IVs Current Medications Medications (Trade) Dose Ordered Sig/Radha Route Start Time Stop Time Status Last Admin (NS Flush) 2 ml UNSCH PRN IV FLUSH 09/11/17 06:45 09/13/17 00:15 (NS Flush) 2 ml BID IV FLUSH 09/11/17 09:00 09/12/17 21:38 (Tylenol) 650 mg Q4H PRN PO 09/11/17 06:45 09/13/17 00:19 (Zofran Inj) 4 mg Q6H PRN IVP 09/11/17 06:45 (Restoril) 15 mg HS PRN PO 09/11/17 06:45 (Lovenox Inj) 40 mg Q24H SQ 09/11/17 08:00 09/13/17 07:54 (Narcan Inj) 0.4 mg UNSCH PRN IV PUSH 09/11/17 06:45 (Milk Of Magnesia Liq) 30 ml Q12H PRN PO 09/11/17 06:45 09/12/17 08:19 (Senokot) 17.2 mg Q12H PRN PO 09/11/17 06:45 (Dulcolax Supp) 10 mg DAILY PRN RECTAL 09/11/17 06:45 (Lactulose Liq) 30 ml DAILY PRN PO 09/11/17 06:45 (Prinivil) 10 mg Q12HR PO 09/11/17 09:00 09/13/17 07:54 Ceftriaxone Sodium 2000 mg/ Sodium Chloride 100 ml @ 200 mls/hr Q24H IV 09/13/17 10:00 A/P Problem List: (1) Sepsis secondary to UTI ICD Code: A41.9 - Sepsis, unspecified organism; N39.0 - Urinary tract infection , site not specified Plan: Continue IV fluid resuscitation. Trend lactic acid. Patient was given vancomycin and Zosyn in the ED. Continue Zosyn Follow urine and blood cultures 09/12 urine cultures are growing gram-negative rods. Follow-up ID and sensitivities. 09/13 urine cultures growing pansensitive E. coli. I will DC IV Zosyn and start the patient IV Rocephin. Sepsis clinically resolving with decreased leukocytosis. However patient still febrile. Continue IV antibiotics. May be able to discharge after the patient' s 24 hours fever free. (2) Hypertension ICD Code: I10 - Essential (primary) hypertension Plan: Patient normally takes lisinopril. Unsure of the dose. Patient started on lisinopril. 09/12 due to patient's episodic hypotension I will hold antihypertensive medications for now. 3 BP stable, continue to hold antihypertensive medications for now. (3) Hypomagnesemia ICD Code: E83.42 - Hypomagnesemia Plan: Resolved. Continue to monitor and replace as needed. (4) Hypokalemia ICD Code: E87.6 - Hypokalemia Plan: Resolved. Continue to monitor BMP and replace as needed. (5) Elevated lactic acid level ICD Code: R79.89 - Other specified abnormal findings of blood chemistry Plan: Lactic acid levels trending down from 2.5-2.1. Continue IV fluids. Check lactic acid. 09/13 lactic acid level is down to normal levels. (6) Hypophosphatemia ICD Code: E83.39 - Other disorders of phosphorus metabolism Plan: Likely due to decreased oral intake. I will replace with Neutra-Phos. Monitor phosphorus levels. Assessment and Plan GI prophylaxis:Add PPI. DVT reflexes: SCDs, Lovenox subcutaneously. Discharge Planning Continue to monitor on the medical floor. Discharge pending clinical improvement. Possible discharge in a.m. if patient afebrile 24 hours. Maury Pack MD Sep 13, 2017 11:20
[2017-09-14] VITALS (7 sets, daily range): BP systolic 119–172; BP diastolic 65–81; PULSE 72–94; RESP 18–22; TEMP 96.9–99.8; O2SAT 92–98
[2017-09-14] MEDS ORDERED: ENALAPRILAT 1.25 MG/ML VIAL IV PUSH ONE (00:15)
[2017-09-14 07:02] LABS: AUTOMATED NEUTROPHIL # 12.3 TH/MM3 (1.8-7.7); BASOPHIL # 0.1 TH/MM3 (0-0.2); BASOPHIL % 0.4 % (0.0-2.0); EOSINOPHIL # 0.2 TH/MM3 (0-0.4); EOSINOPHIL % 1.4 % (0.0-4.0); HEMOGLOBIN 11.8 GM/DL (11.6-15.3); LYMPH % 7.7 % (9.0-44.0); LYMPHOCYTE # 1.2 TH/MM3 (1.0-4.8); MEAN CELL VOLUME 82.5 FL (80.0-100.0); MEAN CORPUSCULAR HEMOGLOBIN 27.8 PG (27.0-34.0); MEAN CORPUSCULAR HGB CONC 33.7 % (32.0-36.0); MEAN PLATELET VOLUME 7.2 FL (7.0-11.0); MONOCYTE # 1.4 TH/MM3 (0-0.9); NEUT % 81.5 % (16.0-70.0); PLATELET COUNT 242 TH/MM3 (150-450); RED BLOOD COUNT 4.24 MIL/MM3 (4.00-5.30); RED CELL DISTRIBUTION WIDTH 12.5 % (11.6-17.2); WHITE BLOOD COUNT 15.1 TH/MM3 (4.0-11.0)
[2017-09-14 07:25] LABS: ALBUMIN 2.7 GM/DL (3.4-5.0); ALT (GPT) 29 U/L (10-53); AST (GOT) 16 U/L (15-37); BLOOD UREA NITROGEN 9 MG/DL (7-18); CALCIUM 8.5 MG/DL (8.5-10.1); CHLORIDE 105 MEQ/L (98-107); GLOMERULAR FILTRATION RATE 98 ML/MIN (>89); GLUCOSE,RANDOM 116 MG/DL (74-106); MAGNESIUM 1.8 MG/DL (1.5-2.5); PHOSPHORUS 2.7 MG/DL (2.5-4.9); SODIUM (NA) 140 MEQ/L (136-145)
[2017-09-14 07:27] LABS: ALKALINE PHOSPHATASE 64 U/L (45-117); TOTAL BILIRUBIN ADULT 0.4 MG/DL (0.2-1.0); TOTAL PROTEIN 6.4 GM/DL (6.4-8.2)
[2017-09-14] MEDS ORDERED: NON-FORMULARY DRUG (Losartan-Hydrochlorothiazide 1 TAB) PO SCH (09:30)
[2017-09-14] MEDS: ENOXAPARIN SODIUM 40 MG/0.4 ML SYRINGE SQ SCH (10:41)
[2017-09-14] MEDS: HYDROCHLOROTHIAZIDE 12.5 MG CAP PO SCH (10:42)
[2017-09-14] MEDS: cefTRIAXone INJ 2,000 MG in SODIUM CHLORIDE 0.9% INJ 100 ML IV SCH (10:42)
[2017-09-14] MEDS: LOSARTAN 50 MG TAB PO SCH (10:42)
[2017-09-14] MEDS: LISINOPRIL 10 MG TAB PO SCH ×2 (10:42→20:34)
[2017-09-14] MEDS: SODIUM CHLORIDE 0.9% FLUSH 10 ML FLUSH IV FLUSH SCH ×2 (10:43→20:35)
--- NOTE | 2017-09-14 13:28 | HHI.PR ---
Subjective Remarks deferred entry patient seen at 9:55 am Patient states had sob last night but this has resolved. Patient still having low grade temps, however fever is improving Objective Vitals Vital Signs Date Time Temp Pulse Resp B/P (MAP) Pulse Ox O2 Delivery O2 Flow Rate FiO2 09/14/17 12:00 99.6 72 20 132/65 (87) 93 09/14/17 08:00 99.7 78 22 172/72 (105) 93 09/14/17 04:00 97.8 79 20 157/74 (101) 92 09/14/17 00:00 99.8 83 20 164/77 (106) 93 09/13/17 20:08 99.1 71 20 142/76 (98) 93 09/13/17 16:00 99.5 71 17 125/61 (82) 91 I/O 09/13/17 09/13/17 09/13/17 09/14/17 09/14/17 09/14/17 07:00 15:00 23:00 07:00 15:00 23:00 Intake Total 600 ml 100 ml 575 ml 600 ml Output Total 10 ml Balance 600 ml 100 ml 565 ml 600 ml Intake Oral 400 ml 575 ml 600 ml IV Total 200 ml 100 ml Output Urine Total 10 ml # Voids 2 3 # Bowel Movements 1 Result Diagram: 09/14/17 0649 09/14/17 0649 Imaging Last Impressions Chest X-Ray 09/11/17 0440 Signed Impressions: Service Date/Time: September 04:55 - CONCLUSION: 1. No acute cardiopulmonary disease. Johnnie Brizuela MD Objective Remarks GENERAL: This is a well-nourished, well-developed patient, in no apparent distress. SKIN: No rashes, ecchymoses or lesions. Cool and dry. HEAD: Atraumatic. Normocephalic. No temporal or scalp tenderness. EYES: Pupils equal round and reactive. Extraocular motions intact. No scleral icterus. No injection or drainage. ENT: Nose without bleeding, purulent drainage or septal hematoma. Throat without erythema, tonsillar hypertrophy or exudate. Uvula midline. Airway patent. NECK: Trachea midline. No JVD or lymphadenopathy. Supple, nontender, no meningeal signs. CARDIOVASCULAR: Regular rate and rhythm without murmurs, gallops, or rubs. RESPIRATORY: Clear to auscultation. Breath sounds equal bilaterally. No wheezes , rales, or rhonchi. GASTROINTESTINAL: Abdomen soft, non-tender, nondistended. No hepato-splenomegaly , or palpable masses. No guarding. MUSCULOSKELETAL: Extremities without clubbing, cyanosis, or edema. No joint tenderness, effusion, or edema noted. No calf tenderness. Negative Homans sign bilaterally. NEUROLOGICAL: Awake and alert. Cranial nerves II through XII intact. Motor and sensory grossly within normal limits. Five out of 5 muscle strength in all muscle groups. Normal speech. Procedures None Medications and IVs Current Medications Medications (Trade) Dose Ordered Sig/Radha Route Start Time Stop Time Status Last Admin (NS Flush) 2 ml UNSCH PRN IV FLUSH 09/11/17 06:45 09/13/17 00:15 (NS Flush) 2 ml BID IV FLUSH 09/11/17 09:00 09/14/17 10:43 (Tylenol) 650 mg Q4H PRN PO 09/11/17 06:45 09/13/17 13:43 (Zofran Inj) 4 mg Q6H PRN IVP 09/11/17 06:45 (Restoril) 15 mg HS PRN PO 09/11/17 06:45 (Lovenox Inj) 40 mg Q24H SQ 09/11/17 08:00 09/14/17 10:41 (Narcan Inj) 0.4 mg UNSCH PRN IV PUSH 09/11/17 06:45 (Milk Of Magnesia Liq) 30 ml Q12H PRN PO 09/11/17 06:45 09/12/17 08:19 (Senokot) 17.2 mg Q12H PRN PO 09/11/17 06:45 (Dulcolax Supp) 10 mg DAILY PRN RECTAL 09/11/17 06:45 (Lactulose Liq) 30 ml DAILY PRN PO 09/11/17 06:45 (Prinivil) 10 mg Q12HR PO 09/11/17 09:00 09/14/17 10:42 Ceftriaxone Sodium 2000 mg/ Sodium Chloride 100 ml @ 200 mls/hr Q24H IV 09/13/17 10:00 09/14/17 10:42 (Cozaar) 100 mg DAILY PO 09/14/17 09:45 09/14/17 10:42 (Microzide) 12.5 mg DAILY PO 09/14/17 09:45 09/14/17 10:42 A/P Problem List: (1) Sepsis secondary to UTI ICD Code: A41.9 - Sepsis, unspecified organism; N39.0 - Urinary tract infection , site not specified Plan: Continue IV fluid resuscitation. Trend lactic acid. Patient was given vancomycin and Zosyn in the ED. Continue Zosyn Follow urine and blood cultures 3/2 urine cultures are growing gram-negative rods. Follow-up ID and sensitivities. 3/ urine cultures growing pansensitive E. coli. I will DC IV Zosyn and start the patient IV Rocephin. / WBC up to 15k today. Blood culture (+) for E coli. Consult ID. Continue Rocephin. (2) Hypertension ICD Code: I10 - Essential (primary) hypertension Plan: Patient normally takes lisinopril. Unsure of the dose. Patient started on lisinopril. 3 due to patient's episodic hypotension I will hold antihypertensive medications for now. 3/3 BP stable, continue to hold antihypertensive medications for now. 3/4 BP severely elevated with an sbp in the 170's systolic range. Resume home antihypertensive medication (Losartan/HCTZ) (3) Hypomagnesemia ICD Code: E83.42 - Hypomagnesemia Plan: Resolved. Continue to monitor and replace as needed. (4) Hypokalemia ICD Code: E87.6 - Hypokalemia Plan: Resolved. Continue to monitor BMP and replace as needed. (5) Elevated lactic acid level ICD Code: R79.89 - Other specified abnormal findings of blood chemistry Plan: Lactic acid levels trending down from 2.5-2.1. Continue IV fluids. Check lactic acid. 3/ lactic acid level is down to normal levels. (6) Hypophosphatemia ICD Code: E83.39 - Other disorders of phosphorus metabolism Plan: Likely due to decreased oral intake. I will replace with Neutra-Phos. Monitor phosphorus levels. Assessment and Plan GI prophylaxis:Add PPI. DVT reflexes: SCDs, Lovenox subcutaneously. Discharge Planning Continue to monitor on the medical floor. Discharge pending clinical improvement. Possible discharge in a.m. if patient afebrile 24 hours. Maury Pack MD Sep 14, 2017 13:28
--- NOTE | 2017-09-14 14:16 | PD.ID.CON ---
History of Present Illness Service Infectious disease Consult Requested By Dr. Wong Reason for Consult Evaluation and management of E. coli bacteremia and E. coli UTI, sepsis Primary Care Physician Unknown Diagnoses: History of Present Illness Ms. Lira is a 72-year-old female with past medical history significant for hypertension borderline diabetes who was brought in from her home by EMS for evaluation of fever chills and generalized weakness. Patient reports that for the last several days she had a feeling of just generalized weakness and her symptoms then progressively got worse which prompted her to call EMS. She reports urinary urgency off and on. She reports prior history of UTI. She denies any history of renal stones or any obstructive etiology. She denies any history of catheterization in the recent past. She denies any GI symptoms. Patient met criteria for sepsis in the emergency department blood cultures were drawn as well as urine cultures both of which are positive for ESBL E. coli and infectious disease is consulted for evaluation and management of the same. Review of Systems Constitutional: COMPLAINS OF: Fever, Chills, DENIES: Diaphoretic episodes, Fatigue, Weight gain, Weight loss, Dizziness, Change in appetite, Night Sweats Endocrine: DENIES: Abnorml menstrual pattern, Heat/cold intolerance, Polydipsia , Polyuria, Polyphagia Eyes: DENIES: Blurred vision, Diplopia, Eye inflammation, Eye pain, Vision loss , Photosensitivity, Double Vision Ears, nose, mouth, throat: DENIES: Tinnitus, Hearing loss, Vertigo, Nasal discharge, Oral lesions, Throat pain, Hoarseness, Ear Pain, Running Nose, Epistaxis, Sinus Pain, Toothache, Odynophagia Respiratory: DENIES: Apneas, Cough, Snoring, Wheezing, Hemoptysis, Sputum production, Shortness of breath Cardiovascular: DENIES: Chest pain, Palpitations, Syncope, Dyspnea on Exertion , PND, Lower Extremity Edema, Orthopnea, Claudication Gastrointestinal: DENIES: Abdominal pain, Black stools, Bloody stools, Constipation, Diarrhea, Nausea, Vomiting, Difficulty Swallowing, Anorexia Genitourinary: DENIES: Abnormal vaginal bleeding, Dysmenorrhea, Dyspareunia, Sexual dysfunction, Urinary frequency, Urinary incontinence, Urgency, Hematuria , Dysuria, Nocturia, Vaginal discharge Musculoskeletal: DENIES: Joint pain, Muscle aches, Stiffness, Joint Swelling, Back pain, Neck pain Integumentary: DENIES: Abnormal pigmentation, Pruritus, Rash, Nail changes, Breast masses, Breast skin changes, Nipple discharge Hematologic/lymphatic: DENIES: Bruising, Lymphadenopathy Immunologic/allergic: DENIES: Eczema, Urticaria Neurologic: DENIES: Abnormal gait, Headache, Localized weakness, Paresthesias, Seizures, Speech Problems, Tremor, Poor Balance Psychiatric: DENIES: Anxiety, Confusion, Mood changes, Depression, Hallucinations, Agitation, Suicidal Ideation, Homicidal Ideation, Delusions Except as stated in HPI: all other systems reviewed are Neg Past Family Social History Allergies: Coded Allergies: No Known Allergies (Unverified , 09/11/17) Past Medical History Hypertension Borderline diabetes per patient, last PCP visit her blood work were good. Past Surgical History Tubal ligation Appendectomy Hernia repair Reported Medications Reported Meds & Active Scripts Active Reported Losartan-Hydrochlorothiazide 100-12.5 Mg Tab 1 Tab PO DAILY Active Ordered Medications Current Medications Medications (Trade) Dose Ordered Sig/Radha Route Start Time Stop Time Status Last Admin (NS Flush) 2 ml UNSCH PRN IV FLUSH 09/11/17 06:45 09/13/17 00:15 (NS Flush) 2 ml BID IV FLUSH 09/11/17 09:00 09/14/17 20:35 (Tylenol) 650 mg Q4H PRN PO 09/11/17 06:45 09/13/17 13:43 (Zofran Inj) 4 mg Q6H PRN IVP 09/11/17 06:45 (Restoril) 15 mg HS PRN PO 09/11/17 06:45 (Lovenox Inj) 40 mg Q24H SQ 09/11/17 08:00 09/14/17 10:41 (Narcan Inj) 0.4 mg UNSCH PRN IV PUSH 09/11/17 06:45 (Milk Of Magnesia Liq) 30 ml Q12H PRN PO 09/11/17 06:45 09/12/17 08:19 (Senokot) 17.2 mg Q12H PRN PO 09/11/17 06:45 (Dulcolax Supp) 10 mg DAILY PRN RECTAL 09/11/17 06:45 (Lactulose Liq) 30 ml DAILY PRN PO 09/11/17 06:45 (Prinivil) 10 mg Q12HR PO 09/11/17 09:00 09/14/17 20:34 Ceftriaxone Sodium 2000 mg/ Sodium Chloride 100 ml @ 200 mls/hr Q24H IV 09/13/17 10:00 09/14/17 10:42 (Cozaar) 100 mg DAILY PO 09/14/17 09:45 09/14/17 10:42 (Microzide) 12.5 mg DAILY PO 09/14/17 09:45 09/14/17 10:42 Family History Reviewed and noncontributory to infectious disease problems. Social History Quit smoking over 14 years ago. Social alcohol. [place], [place] Physical Exam Vital Signs Vital Signs Date Time Temp Pulse Resp B/P (MAP) Pulse Ox O2 Delivery O2 Flow Rate FiO2 09/14/17 12:00 99.6 72 20 132/65 (87) 93 09/14/17 08:00 99.7 78 22 172/72 (105) 93 09/14/17 04:00 97.8 79 20 157/74 (101) 92 09/14/17 00:00 99.8 83 20 164/77 (106) 93 09/13/17 20:08 99.1 71 20 142/76 (98) 93 09/13/17 16:00 99.5 71 17 125/61 (82) 91 Physical Exam GENERAL: This is a well-nourished, well-developed patient, in no apparent distress. SKIN: No rashes, ecchymoses or lesions. Cool and dry. HEAD: Atraumatic. Normocephalic. No temporal or scalp tenderness. EYES: Pupils equal round and reactive. Extraocular motions intact. No scleral icterus. No injection or drainage. ENT: Nose without bleeding, purulent drainage or septal hematoma. Throat without erythema, tonsillar hypertrophy or exudate. Uvula midline. Airway patent. NECK: Trachea midline. No JVD or lymphadenopathy. Supple, nontender, no meningeal signs. CARDIOVASCULAR: Regular rate and rhythm without murmurs, gallops, or rubs. RESPIRATORY: Clear to auscultation. Breath sounds equal bilaterally. No wheezes , rales, or rhonchi. GASTROINTESTINAL: Abdomen soft, non-tender, nondistended. No hepato-splenomegaly , or palpable masses. No guarding. MUSCULOSKELETAL: Extremities without clubbing, cyanosis, or edema. No joint tenderness, effusion, or edema noted. No calf tenderness. Negative Homans sign bilaterally. NEUROLOGICAL: Awake and alert. Cranial nerves II through XII intact. Motor and sensory grossly within normal limits. Five out of 5 muscle strength in all muscle groups. Normal speech. Psych cooperative IV line sites with no evidence of infection. Laboratory Laboratory Tests Test 09/14/17 06:49 White Blood Count 15.1 Red Blood Count 4.24 Hemoglobin 11.8 Hematocrit 35.0 Mean Corpuscular Volume 82.5 Mean Corpuscular Hemoglobin 27.8 Mean Corpuscular Hemoglobin Concent 33.7 Red Cell Distribution Width 12.5 Platelet Count 242 Mean Platelet Volume 7.2 Neutrophils (%) (Auto) 81.5 Lymphocytes (%) (Auto) 7.7 Monocytes (%) (Auto) 9.0 Eosinophils (%) (Auto) 1.4 Basophils (%) (Auto) 0.4 Neutrophils # (Auto) 12.3 Lymphocytes # (Auto) 1.2 Monocytes # (Auto) 1.4 Eosinophils # (Auto) 0.2 Basophils # (Auto) 0.1 CBC Comment DIFF FINAL Differential Comment Blood Urea Nitrogen 9 Creatinine 0.60 Random Glucose 116 Total Protein 6.4 Albumin 2.7 Calcium Level 8.5 Phosphorus Level 2.7 Magnesium Level 1.8 Alkaline Phosphatase 64 Aspartate Amino Transf (AST/SGOT) 16 Alanine Aminotransferase (ALT/SGPT) 29 Total Bilirubin 0.4 Sodium Level 140 Potassium Level 4.0 Chloride Level 105 Carbon Dioxide Level 29.0 Anion Gap 6 Estimat Glomerular Filtration Rate 98 Date/Time Source Procedure Growth Status 09/14/17 12:35 Blood Peripheral Aerobic Blood Culture Pending Received 09/14/17 12:35 Blood Peripheral Anaerobic Blood Culture Pending Received 09/11/17 04:50 Nasal Washing Influenza Types A,B Antigen ([facility]) - Final NEGATIVE FOR FLU A AND B ANTIGEN.... Complete 09/11/17 05:40 Urine Clean Catch Urine Culture - Final Escherichia Coli Complete Result Diagram: 09/14/17 0649 09/14/17 0649 Imaging Last Impressions Chest X-Ray 09/11/17 0440 Signed Impressions: Service Date/Time: September 04:55 - CONCLUSION: 1. No acute cardiopulmonary disease. Johnnie Brizuela MD Assessment and Plan Assessment and Plan Sepsis present on admission E. coli bacteremia E. coli UTI Obesity BMI 62.6 kg/m Recommendations Ultrasound kidney Discontinue ceftriaxone IV Start Levaquin oral If blood cultures remain negative and ultrasound of the kidney Levaquin Please call me with the results of the same to obtain final recommendations Discussed with patient as well as in the room. Counseled about Levaquin side effects as well as drug interactions with Tums as well as antacids and PPIs. Counseled to avoid milk and milk products along with Levaquin and to space them out. Counseled about importance of early testing for diarrhea as possibility of C. difficile. Recommended to buy [id number] probiotics to be used in addition to Levaquin. Counseled about tendinitis development with Levaquin. Asked to seek help if there is any pain or weakness in the lower extremity. Especially deferred. Discussed with RN as well as the patient and family. Priscila Gonzales MD Sep 14, 2017 14:16
[2017-09-15] VITALS: BP 152/74; PULSE 78; RESP 18; TEMP 98.4; O2SAT 93
[2017-09-15 04:00] VITALS: BP 143/69; PULSE 70; RESP 20; TEMP 97.7; O2SAT 92
[2017-09-15 08:00] VITALS: BP 144/71; PULSE 70; RESP 18; TEMP 98.7; O2SAT 92
[2017-09-15] MEDS: ENOXAPARIN SODIUM 40 MG/0.4 ML SYRINGE SQ SCH (08:00)
[2017-09-15] MEDS: HYDROCHLOROTHIAZIDE 12.5 MG CAP PO SCH (08:10)
[2017-09-15] MEDS: LISINOPRIL 10 MG TAB PO SCH (08:10)
[2017-09-15] MEDS: LOSARTAN 50 MG TAB PO SCH (08:11)
[2017-09-15] MEDS: SODIUM CHLORIDE 0.9% FLUSH 10 ML FLUSH IV FLUSH SCH (08:11)
[2017-09-15 08:15] VITALS: PULSE 70
[2017-09-15] MEDS ORDERED: LEVOFLOXACIN 750 MG TAB PO SCH (09:00)
--- NOTE | 2017-09-15 10:00 | RADRPT ---
EXAM DATE/TIME: 09/15/2017 08:53 [facility] COMPARISON: No previous studies available for comparison. INDICATIONS : Elevated labs. MEDICAL HISTORY : Hypertension. Gastroesophageal reflux disease. Arthritis. Chicken pox. Measles. SURGICAL HISTORY : Appendectomy. Tubal ligation. ENCOUNTER: Initial ACUITY: 1 day PAIN SCORE: 0/10 LOCATION: Bilateral flank MEASUREMENTS: RIGHT KIDNEY: 11.1 x 5.2 x 5.3 cm LEFT KIDNEY: 11.6 x 4.6 x 5.6 cm FINDINGS: RIGHT KIDNEY: Renal cortex is normal in thickness and echotexture. No hydronephrosis, stone, or mass. LEFT KIDNEY: Renal cortex is normal in thickness and echotexture. No hydronephrosis, stone, or mass. BLADDER: Within normal limits given the degree of distension. CONCLUSION: Negative for stone or hydronephrosis. Robert Mart MD FACR on September 15, 2017 at 9:57 Board Certified Radiologist. This report was verified electronically.
--- NOTE | 2017-09-15 10:22 | HHI.PR ---
Subjective Remarks feels great up and ambulating voiding well with no dysuria or urgency no diarrhea Objective Vitals Vital Signs Date Time Temp Pulse Resp B/P (MAP) Pulse Ox O2 Delivery O2 Flow Rate FiO2 09/15/17 08:15 70 09/15/17 04:00 97.7 70 20 143/69 (93) 92 09/15/17 00:00 98.4 78 18 152/74 (100) 93 09/14/17 20:30 72 09/14/17 20:00 97.9 81 20 147/72 (97) 93 09/14/17 16:00 98.3 76 18 140/67 (91) 95 09/14/17 12:00 99.6 72 20 132/65 (87) 93 I/O 09/14/17 09/14/17 09/14/17 09/15/17 09/15/17 09/15/17 07:00 15:00 23:00 07:00 15:00 23:00 Intake Total 600 ml 100 ml 1400 ml 240 ml Balance 600 ml 100 ml 1400 ml 240 ml Intake Oral 600 ml 1400 ml 240 ml IV Total 100 ml # Voids 3 5 7 # Bowel Movements 1 Result Diagram: 09/14/17 0649 09/14/17 0649 Imaging Last Impressions Chest X-Ray 09/11/17 0440 Signed Impressions: Service Date/Time: September 04:55 - CONCLUSION: 1. No acute cardiopulmonary disease. Johnnie Brizuela MD Objective Remarks awake and alert, oriented x 3 anicteric lungs- clear regular rhythm abdomen soft, no CVA tendereness extremities no edema gait steady neuro exam- unremarkable Procedures None A/P Problem List: (1) Sepsis secondary to UTI ICD Code: A41.9 - Sepsis, unspecified organism; N39.0 - Urinary tract infection , site not specified (2) Hypertension ICD Code: I10 - Essential (primary) hypertension (3) Hypomagnesemia ICD Code: E83.42 - Hypomagnesemia (4) Hypokalemia ICD Code: E87.6 - Hypokalemia (5) Elevated lactic acid level ICD Code: R79.89 - Other specified abnormal findings of blood chemistry (6) Hypophosphatemia ICD Code: E83.39 - Other disorders of phosphorus metabolism Assessment and Plan 72 years old E coli sepsis secondary to e coli UTI - T improved - repeat blood cultures- negative so far - Levaquin 750 mg po daily to complete 2 weeks HYpertesnion- continue meds- confirmed with patient - - states she is on Lisinopril 10 mg bid only. - continue and OP ff up with PCP - OP ff up iw PCP Hypomagnesemia- resolved Advise ff up with PCP- dr. Ortiz for ff up in5 days with repeat UA in 1 week Estrellita Hendrix MD Sep 15, 2017 10:22
[2017-09-15] MEDS ORDERED: LEVA750T9 PO (10:32)
[2017-09-15] MEDS ORDERED: LISI10TA3 PO (10:45)
--- NOTE | 2017-09-15 17:45 | HHI.DS ---
Discharge Summary Admission Date Sep 11, 2017 at 06:20 Discharge Date: Sep 15, 2017 Admitting Diagnosis sepsis; uti/pyuria (1) Sepsis secondary to UTI ICD Code: A41.9 - Sepsis, unspecified organism; N39.0 - Urinary tract infection , site not specified Diagnosis: Principal (2) Hypertension ICD Code: I10 - Essential (primary) hypertension Diagnosis: Secondary (3) Hypomagnesemia ICD Code: E83.42 - Hypomagnesemia Diagnosis: Secondary (4) Hypokalemia ICD Code: E87.6 - Hypokalemia Diagnosis: Secondary (5) Elevated lactic acid level ICD Code: R79.89 - Other specified abnormal findings of blood chemistry Diagnosis: Secondary (6) Hypophosphatemia ICD Code: E83.39 - Other disorders of phosphorus metabolism Diagnosis: Secondary Procedures None Brief History - From Admission 72-year-old female with a medical history significant for hypertension, borderline diabetes brought from home by EMS for evaluation of fever, chills, generalized weakness. Patient reports her symptoms has been ongoing for the past couple of days and has been worsening which prompted her to call EMS. She reports urinary urgency and has not been urinating as much. Her appetite has decreased for the past couple of days. She has not been drinking as much fluid. No diarrhea or vomiting. She denies any previous history of UTI. Patient meet severe sepsis criteria secondary to UTI per workup in the emergency room. She will be admitted for further treatment. CBC/BMP: 09/14/17 0649 09/14/17 0649 Significant Findings Laboratory Tests Test 09/12/17 22:37 09/13/17 09:21 09/14/17 06:49 White Blood Count 13.0 TH/MM3 (4.0-11.0) 15.1 TH/MM3 (4.0-11.0) Neutrophils (%) (Auto) 81.7 % (16.0-70.0) 81.5 % (16.0-70.0) Neutrophils # (Auto) 10.6 TH/MM3 (1.8-7.7) 12.3 TH/MM3 (1.8-7.7) Random Glucose 188 MG/DL (74-106) 116 MG/DL (74-106) Total Protein 6.3 GM/DL (6.4-8.2) Albumin 2.8 GM/DL (3.4-5.0) 2.7 GM/DL (3.4-5.0) Phosphorus Level 1.9 MG/DL (2.5-4.9) Estimat Glomerular Filtration Rate 65 ML/MIN (>89) Lymphocytes (%) (Auto) 7.7 % (9.0-44.0) Monocytes (%) (Auto) 9.0 % (0.0-8.0) Monocytes # (Auto) 1.4 TH/MM3 (0-0.9) Imaging Last Impressions Renal Ultrasound 09/15/17 0000 Signed Impressions: Service Date/Time: Friday, September 15, 2017 08:53 - CONCLUSION: Negative for stone or hydronephrosis. Robert Mart MD FACR Chest X-Ray 09/11/17 0440 Signed Impressions: Service Date/Time: September 04:55 - CONCLUSION: 1. No acute cardiopulmonary disease. Johnnie Brizuela MD PE at Discharge awake and alert, oriented x 3 anicteric lungs- clear regular rhythm abdomen soft, no CVA tenderness extremities no edema gait steady neuro exam- unremarkable Pt update on day of discharge afebrile up and ambulating good po no dysuria Hospital Course 72 years old E coli sepsis secondary to e coli UTI - T improved - repeat blood cultures- negative so far - Levaquin 750 mg po daily to complete 2 weeks HYpertesnion- continue meds- confirmed with patient - - states she is on Lisinopril 10 mg bid only. - continue and OP ff up with PCP - OP ff up iw PCP Hypomagnesemia- resolved Advise ff up with PCP- dr. Ortiz for ff up in5 days with repeat UA in 1 week Pt Condition on Discharge: Stable Discharge Disposition: Discharge Home Discharge Time: <= 30 minutes Discharge Instructions DIET: Follow Instructions for: Heart Healthy Diet Activities you can perform: Weight Bearing as Park Follow up Referrals: PCP Follow-up - 09/18/17 with Gael New Medications: Levofloxacin (Levaquin) 750 Mg Tablet 750 MG PO DAILY for Infection for 13 Days, #13 TAB 0 Refills Lisinopril (Lisinopril) 10 Mg Tab 10 MG PO Q12HR for HTN for 30 Days, TAB Discontinued Medications: Losartan-Hydrochlorothiazide (Losartan-Hydrochlorothiazide) 100-12.5 Mg Tab 1 TAB PO DAILY for Blood Pressure Management, #30 TAB 0 Refills Estrellita Hendrix MD Sep 15, 2017 17:45
== END 2017-09-15 11:49 | disposition home or self-care (01) | DRG 872 ==
LOC: NEPC 04:34 → NEDA 06:20 → N07A 06:56
PROVIDERS: ADMIT Internal Medicine; ATTEND Internal Medicine
DX: A41.51 Sepsis due to Escherichia coli [E. coli] (principal); N39.0 Urinary tract infection, site not specified; Z68.44 Body mass index [BMI] 60.0-69.9, adult; E11.9 Type 2 diabetes mellitus without complications; E83.42 Hypomagnesemia; I10 Essential (primary) hypertension; I44.7 Left bundle-branch block, unspecified; I25.2 Old myocardial infarction; I25.10 Atherosclerotic heart disease of native coronary artery without angina pectoris; E66.9 Obesity, unspecified; R65.20 Severe sepsis without septic shock; E87.6 Hypokalemia; E83.39 Other disorders of phosphorus metabolism; Z87.891 Personal history of nicotine dependence
CPT/HCPCS: 71045; 76775; 76937; 80048; 80053; 81001; 83605; 83690; 83735; 84100; 84484; 85025; 85610; 85730; 87040; 87077; 87086; 87186; 87205; 87804; 93005; 96365; 96368; 96375; J0696; J1650; J2405; J2543; J3370; J3475; J7030; J7050